=== PATIENT | male | born 1945 | race Caucasian/White ===

== ENCOUNTER → 2023-11-26 06:33 | Day surgery (SDC) | payer MEDICARE, OTHER, SELFPAY | LOC: GI 06:33 | PROVIDERS: ATTENDING PHYSICIAN Internal Medicine Gastroenterology; FAMILY PHYSICIAN Internal Medicine | DX: R10.12 Left upper quadrant pain (principal); K31.89 Other diseases of stomach and duodenum; K29.60 Other gastritis without bleeding | CPT/HCPCS: 43239; 88305; 88342 ==

== ENCOUNTER → 2023-12-06 09:09 | Outpatient (REF) | payer MEDICARE, OTHER, SELFPAY | LOC: HWRAD 09:09 | PROVIDERS: ATTENDING PHYSICIAN Internal Medicine Gastroenterology; FAMILY PHYSICIAN Physician Assistant Medical | DX: R10.84 Generalized abdominal pain (principal) | CPT/HCPCS: 74178; Q9967 ==

== ENCOUNTER → 2024-02-19 10:35 | Outpatient (REF) | payer MEDICARE, OTHER, SELFPAY | LOC: RAD 10:35 | PROVIDERS: ATTENDING PHYSICIAN Internal Medicine; REFERRING PHYSICIAN Internal Medicine Cardiovascular Disease | DX: Z86.79 Personal history of other diseases of the circulatory system (principal); I65.23 Occlusion and stenosis of bilateral carotid arteries | CPT/HCPCS: 93880 ==

== ENCOUNTER → 2025-07-22 08:25 | Outpatient (REF) | payer MEDICARE, OTHER, SELFPAY | LOC: MRI 3T 08:25 | PROVIDERS: ATTENDING PHYSICIAN Specialist; FAMILY PHYSICIAN Physician Assistant Medical | DX: R97.20 Elevated prostate specific antigen [PSA] (principal) | CPT/HCPCS: 72197; A9575 ==